=== PATIENT | female | born 1945 | race Caucasian/White ===

== ENCOUNTER → 2017-06-20 | Outpatient (CLI) | payer MEDICARE, BC ==
--- NOTE | 2017-06-20 16:31 | Diagnostic Imaging Report ---
PROCEDURE: US THYROID COMPARISON: 11/20/2015. INDICATIONS:ENGLARGED THYROID TECHNIQUE: Transverse and longitudinal ferreira-scale sonographic images of the thyroid were obtained and supplemented with color doppler. FINDINGS: Right thyroid lobe: 5.0 x 2.7 x 1.8 cm, enlarged Left thyroid lobe: 5.3 x 1.8 x 1.8 cm, enlarged Isthmus: 0.3 cm. The thyroid parenchyma is diffusely heterogeneous and hypervascular. No discrete nodules. CONCLUSION: No significant interval change. Heterogeneous, enlarged thyroid with increased vascularity, consistent with chronic thyroiditis. No discrete nodules. Dictated by: Jc Umana M.D. on 06/20/2017 at 16:40 Electronically approved by: Jc Umana M.D. on 06/20/2017 at 16:40
== END ==
LOC: US 11:37
DX: E04.9 Nontoxic goiter, unspecified (principal)
CPT/HCPCS: 76536

== ENCOUNTER → 2020-03-20 | Outpatient (CLI) | payer MEDICARE, BC ==
[~2020-03-20] MED LIST: IOPAMIDOL 370 MG/ML 200 ML INFUS..BTL INJ ONE; SODIUM CHLORIDE 0.9% 50ML 50 ML ONE
[2020-03-20 09:23] LABS: BLOOD UREA NITROGEN 30 mg/dL (7-26); BUN/CREATININE RATIO 37 (6-25); CREATININE, SERUM 0.82 mg/dL (0.57-1.11); EST GLOMERULAR FILTRATION RATE > 60 ML/MIN (60-)
--- NOTE | 2020-03-20 10:19 | Diagnostic Imaging Report ---
CT of the abdomen and pelvis with and without contrast TECHNIQUE: CT of the abdomen and pelvis WITHOUT and WITH intravenous contrast and WITHOUT oral contrast. Dose modulation, iterative reconstruction, and/or weight-based adjustment of the mA/kV was utilized to reduce the radiation dose to as low as reasonably achievable. Liver protocol was utilized obtaining precontrast, arterial phase, portal venous and delayed phase imaging. IV CONTRAST: 100 mL of Isovue-370 ORAL CONTRAST: None RADIATION DOSE: Total DLP: 964 mGy*cm COMPLICATIONS: None INDICATION: ^20200320 ^30 ^ABD PAIN. COMPARISON: None. FINDINGS: LOWER THORAX: Dependent subsegmental atelectasis and basilar/lingular scarring is noted. HEPATOBILIARY: The right hepatic dome is not included on the arterial phase imaging. Within the inferior right hepatic lobe (segment 7 image #37) there is a focal area of arterial ill-defined hyperenhancement measuring up to 5 mm. Distal images persistent hyperenhancement on venous phase imaging and isoattenuation on delayed phase imaging. No suspicious area of delayed washout. There is a hypodense cysts within the superior right hepatic lobe (segment 4A) measuring up to 6 mm. Hepatic and portal veins are patent. Splenic vein is patent. Superior mesenteric vein is patent. Gastrohepatic trunk is noted with left hepatic artery arising from the left gastric artery. Gallbladder is unremarkable. No biliary ductal dilatation. SPLEEN: No splenomegaly. A few scattered calcifications are noted. PANCREAS: No focal masses or ductal dilatation. ADRENALS: Right adrenal gland is unremarkable. Fat-containing left adrenal gland lesion is noted with internal Hounsfield units of -17 consistent with a benign adenoma. KIDNEYS/URETERS: Symmetric cortical enhancement without hydronephrosis or suspicious perinephric fluid collection or enhancing mass. Left renal cortical cyst are identified. Delayed imaging demonstrates symmetric excretion of contrast into nondilated ureters. PELVIC ORGANS/BLADDER: Urinary bladder is unremarkable. Uterus is surgically absent. Ovaries are not visualized and presumably surgically absent as well. PERITONEUM/RETROPERITONEUM: No free air or fluid. LYMPH NODES: No lymphadenopathy. VESSELS: Negative for abdominal aortic aneurysm. Celiac, superior mesenteric, bilateral renal, inferior mesenteric artery and proximal common iliac arteries are unremarkable. GI TRACT: Limited evaluation due to lack of oral contrast. Negative for bowel obstruction. Stomach is decompressed limiting evaluation. Small hiatal hernia is noted. Moderate colonic stool retention is noted. Normal appendix is noted. No surrounding inflammatory changes are identified. BONES AND SOFT TISSUES: No acute osseous abnormality. Osseous changes are demineralized. Moderate to severe multilevel degenerative changes of the spine are noted. No suspicious lytic or blastic lesion is identified. Moderate degenerative change of the left and mild degenerative change of the right hip are noted. IMPRESSION: 1. Liver protocol CT is negative for evidence of cirrhosis or portal hypertension. No suspicious arterial hyperenhancement or delayed washout. 2. Persistent hyperenhancement of a subcentimeter lesion in the inferior right hepatic lobe with delayed fill-in is likely related to a flash filling hemangioma. There is also a subcentimeter hypodense cyst in the right hepatic dome at the junction of segments 4A and 8. 3. Left adrenal adenoma. 4. Renal cortical cysts. 5. Moderate colonic retention concerning for constipation. 6. Diffuse osseous demineralization. Multilevel degenerative changes of the spine. Moderate degenerative changes of the left hip and mild degenerative changes of the right hip. Signed by: Demetrio Garvin MD on 03/20/2020 10:16 AM
== END ==
LOC: CT 07:37
PROVIDERS: ATTEND Urology
DX: R10.9 Unspecified abdominal pain (principal)
CPT/HCPCS: 36415; 74178; 82565; 84520; Q9967